=== PATIENT | male | born 2000 | race Caucasian/White ===

== ENCOUNTER 2022-06-07 20:13 | Emergency (ER) | payer OTHER ==
[2022-06-07] MEDS ORDERED: Ketorolac 60 MG/2 ML SDV IM ONE (20:41)
== END 2022-06-07 22:46 | disposition home or self-care (01) ==
LOC: MW.ED 20:13
DX: S20.224A Contusion of middle back wall of thorax, initial encounter (principal); I10 Essential (primary) hypertension; Z79.899 Other long term (current) drug therapy; Z88.0 Allergy status to penicillin; Y04.0XXA Assault by unarmed brawl or fight, initial encounter
CPT/HCPCS: 71045; 93005; 96372; 99284; J1885; 93010